=== PATIENT | male | born 1990 | race Caucasian/White ===

== ENCOUNTER 2021-03-28 22:37 | Day surgery (SDC) | payer BC ==
[~2021-03-28 22:37] MED LIST: HYDROmorphone 1 MG/ML Syringe IVPUSH PRN; Ondansetron 4 MG/2 ML SDV IVPUSH PRN; Sodium Chloride 0.9% 1,000 ML IV SCH; Sodium Chloride 0.9% 10 ML Syringe FLUSH PRN; Sodium Chloride 0.9% 2.5 ML Syringe FLUSH PRN; Sodium Chloride 0.9% 20 ML SDV IV PRN
[2021-03-29] MEDS ORDERED: propofoL 100 ML ONE (06:20)
[2021-03-29] MEDS ORDERED: Lidocaine 2% 100 MG/5 ML Syringe ONE ×2 (06:21)
[2021-03-29] MEDS ORDERED: Sugammadex Sodium 200 MG/2 ML VIAL ONE (06:21)
[2021-03-29] MEDS ORDERED: Rocuronium Bromide 50 MG/5 ML Syringe ONE (06:21)
[2021-03-29] MEDS ORDERED: Naloxone 0.4 MG/ML SDV IVPUSH PRN (06:23)
[2021-03-29] MEDS ORDERED: Ondansetron 4 MG/2 ML SDV IVPUSH PRN (06:23)
[2021-03-29] MEDS ORDERED: HYDROmorphone 1 MG/ML Syringe IVPUSH PRN (06:23)
[2021-03-29] MEDS ORDERED: Morphine 4 MG/ML VIAL IVPUSH PRN (06:23)
[2021-03-29] MEDS ORDERED: fentaNYL 100 MCG/2 ML SDV IVPUSH PRN (06:23)
[2021-03-29] MEDS ORDERED: Albuterol 0.083% 2.5 MG/3 ML Neb Soln NEB PRN (06:23)
[2021-03-29] MEDS ORDERED: Metoclopramide 10 MG/2 ML SDV IVPUSH PRN (06:23)
[2021-03-29] MEDS ORDERED: Octyl 2-Cyanoacrylate 1 Tube ONE (07:10)
[2021-03-29] MEDS ORDERED: Bupivacaine 0.5% 10 ML SDV ONE (07:10)
[2021-03-29] MEDS ORDERED: ceFAZolin 1 GM Vial ONE (07:11)
[2021-03-29] MEDS ORDERED: Water For Injection, Sterile 20 ML ONE (07:13)
[2021-03-29] MEDS ORDERED: fentaNYL 250 MCG/5 ML SDV ONE (07:14)
[2021-03-29] MEDS ORDERED: Dexamethasone 4 MG/ML 5 ML MDV ONE (07:34)
[2021-03-29] MEDS ORDERED: Acetaminophen/oxyCODONE 325-5 MG Tab PO PRN (08:24)
[2021-03-29] MEDS ORDERED: HYDROmorphone 2 MG/ML Syringe IVPUSH PRN (08:24)
[2021-03-29] MEDS ORDERED: Acetaminophen 1,000 MG in Premix Bag 1 BAG IV ONE (12:42)
[2021-03-29] MEDS ORDERED: Ketorolac 30 MG/ML SDV IVPUSH PRN (13:00)
[2021-03-29] MEDS: Morphine 15 MG Tab PO PRN ×2 (15:42→17:35)
== END 2021-03-29 18:00 | disposition home or self-care (01) ==
LOC: MW.SDS 22:37 → MW.MS 22:38 → MW.SDS 03-29 18:00
PROVIDERS: ATTEND Surgery
DX: K35.30 Acute appendicitis with localized peritonitis, without perforation or gangrene (principal); F17.210 Nicotine dependence, cigarettes, uncomplicated
CPT/HCPCS: 44970; A9270; J0131; J0690; J1100; J1170; J2704; J3010; J3490; J7030; 00840; J0330